=== PATIENT | female | born 2000 | race Two or more races ===

== ENCOUNTER 2024-04-23 21:49 | Emergency (ER) | payer MEDICAID, OTHER ==
[~2024-04-23] VITALS: Ht 160 cm; Wt 75.2 kg
[2024-04-23 22:03] VITALS: BP 148/92; PULSE 95; TEMP 98.9
[2024-04-23] MEDS: ALBUTEROL SULF 2.5 MG/0.5ML(0.5%) NEB SOLN NEB ONE (22:33)
[2024-04-23 22:37] VITALS: RESP 18
[2024-04-24 01:37] VITALS: O2SAT 94
[2024-04-24] MEDS: DexAMETHasone SOD PHOS 10MG/1ML VIAL INJ IM ONE (01:53)
[2024-04-24] MEDS ORDERED: AZIT500T66 PO (02:44)
== END 2024-04-24 04:22 | disposition home or self-care (01) ==
LOC: ER 21:49
DX: J18.9 Pneumonia, unspecified organism (principal)
CPT/HCPCS: 71045; 94640; 96372; 99283; J1100